=== PATIENT | female | born 1945 | race Caucasian/White ===

== ENCOUNTER 2016-10-21 18:56 | Observation (INO) | payer OTHER ==
[~2016-10-21] VITALS: Ht 165.1 cm; Wt 99.5 kg
[~2016-10-21 18:56] MED LIST: ABILIFY10 MG PO; AMITIZA24 MICROGR PO; BUSPAR15 MG PO; BYSTOLIC5 MG PO; CARDIZEM60 MG PO; CIPROFLOXACIN500 M1 PO; CLARITHROMYCIN500 MG PO; COZAAR100 MG PO; CYANOCOBALAM1000 MCG PO; CYMBALTA60 MG PO; DESYREL100 MG PO; FLONASE16 G1 BOTH NARES; FUROSEMIDE40 MG PO; GABAPENTIN600 MG PO; HYDROCHLOROTHIA25 MG PO; HYDROCODON-ACE1 EAC7 PO; HYZAAR 100-21 TABLET PO; LODINE500 MG PO; LOSARTAN-HCTZ1 EAC1 PO; LYRICA75 MG PO; MECLIZINE HCL25 MG PO; MEGARED OMEGA-1 EAC1 PO; NORCO 7.5/321 TABLET PO; OMEGA-3 KRILL1 EACH PO; OXYCODONE HCL10 MG PO; PANTOPRAZOLE SO40 MG PO; PERCOCET 10/1 TABLET PO; PRILOSEC20 MG PO; TRADJENTA5 MG PO; VITAMIN B122500 MCG PO; VITAMIN D31000 UNI2 PO; VITAMIN D31000 UNIT PO; XARELTO20 MG PO; ZETIA10 MG PO; ZOCOR40 MG PO
[2016-10-21 19:25] LABS: HEMATOCRIT 39.7 % (36.0-46.0); MCH 25.9 PG (29.0-34.0); MCHC 31.7 G/DL (30.0-36.0); MCV 81.5 FL (83-99); MEAN PLAT.VOLUME 9.4 uM^3 (9.5-12.4); PLATELET COUNT 383 K/uL (156-360); RBC DIS.WIDTH-CV 15.4 % (11.8-14.6); RBC DIS.WIDTH-SD 45.4 % (39-53); RED BLOOD COUNT 4.87 M/uL (3.80-5.20); WHITE BLOOD COUNT 13.3 K/uL (4.1-10.2)
[2016-10-21 19:37] LABS: CHLORIDE 100 mEq/L (99-109); POTASSIUM 3.8 mEq/L (3.7-5.4); SODIUM 138 mEq/L (136-147)
[2016-10-21 19:38] LABS: GLUCOSE 109 mg/dL (70-99)
[2016-10-21 19:40] LABS: ANION GAP 11 MEQ/L (2-14)
[2016-10-21 19:42] LABS: GFR ESTIMATE (CALCULATED) 36 mL/min/
[2016-10-21 19:43] LABS: UREA NITROGEN (BUN) 22 mg/dL (9-23)
[2016-10-21 19:46] LABS: TROP-I INTERPRETATION NEGATIVE; TROPONIN-I < 0.01 ng/mL (0.0-0.30)
[2016-10-21 19:58] LABS: D-DIMER ELISA 0.26 mg/L FEU (< 0.57)
[2016-10-21 22:49] VITALS: BP 132/71
[2016-10-22 03:04] LABS: TROP-I INTERPRETATION NEGATIVE; TROPONIN-I < 0.01 ng/mL (0.0-0.30)
[2016-10-22 03:48] VITALS: BP 92/50
[2016-10-22 08:30] VITALS: BP 110/63
[2016-10-22] MEDS ORDERED: OXYCODONE-APAP1 EACH PO (10:44)
[2016-10-22] MEDS ORDERED: TRAZODONE HCL100 MG PO (10:46)
[2016-10-22] MEDS ORDERED: KLONOPIN0.5 M1 PO (10:47)
[2016-10-22 11:40] VITALS: BP 121/67
[2016-10-22 12:52] LABS: TROP-I INTERPRETATION NEGATIVE; TROPONIN-I < 0.01 ng/mL (0.0-0.30)
[2016-10-22 16:32] VITALS: BP 118/67
[2016-10-22 19:00] VITALS: BP 119/63
[2016-10-22] MEDS ORDERED: BACTRIM,SEPT1 TABLET PO (19:27)
[2016-10-22] MEDS ORDERED: ASPIRIN EC325 MG PO (19:27)
[2016-10-22] MEDS ORDERED: OXYCODONE HCL5 MG PO (19:27)
[2016-10-22] MEDS ORDERED: PREDNISONE10 MG PO (19:27)
[2016-10-22] MEDS ORDERED: TUSSIN DM COUG237 ML PO (19:27)
== END 2016-10-22 20:44 | disposition home or self-care (01) ==
LOC: EME 18:56 → 5WEST 21:00 → EDOF 21:00 → 5WEST 22:39
PROVIDERS: Emergency Medicine; Internal Medicine
DX: R55 Syncope and collapse (principal); R09.1 Pleurisy; E86.0 Dehydration; J20.9 Acute bronchitis, unspecified; M94.0 Chondrocostal junction syndrome [Tietze]; I48.0 Paroxysmal atrial fibrillation; I10 Essential (primary) hypertension; Z79.01 Long term (current) use of anticoagulants; M19.90 Unspecified osteoarthritis, unspecified site; K21.9 Gastro-esophageal reflux disease without esophagitis; E66.9 Obesity, unspecified; Z68.36 Body mass index [BMI] 36.0-36.9, adult
CPT/HCPCS: 71020; 80048; 82948; 84484; 85027; 85379; 93005; 94799; 99281; 99285; G0378; J1815; J7040; J7042

== ENCOUNTER 2016-12-01 15:50 | Emergency (ER) | payer OTHER ==
[~2016-12-01] VITALS: Ht 165.1 cm; Wt 100.0 kg
[~2016-12-01 15:50] MED LIST changes: +ASPIRIN EC325 MG PO; +BACTRIM,SEPT1 TABLET PO; +KLONOPIN0.5 M1 PO; +OXYCODONE HCL5 MG PO; +OXYCODONE-APAP1 EACH PO; +PREDNISONE10 MG PO; +TRAZODONE HCL100 MG PO; +TUSSIN DM COUG237 ML PO
[2016-12-01 18:46] VITALS: BP 118/81
== END 2016-12-01 18:47 | disposition home or self-care (01) ==
LOC: EME 15:50
PROC: 2W3RX1Z Immobilization of Left Lower Leg using Splint (ICD-10-PCS; principal; 2016-12-01)
DX: S92.352A Displaced fracture of fifth metatarsal bone, left foot, initial encounter for closed fracture (principal); S86.912A Strain of unspecified muscle(s) and tendon(s) at lower leg level, left leg, initial encounter; W18.09XA Striking against other object with subsequent fall, initial encounter; Y92.000 Kitchen of unspecified non-institutional (private) residence as the place of occurrence of the external cause; I10 Essential (primary) hypertension; E11.9 Type 2 diabetes mellitus without complications; Z79.84 Long term (current) use of oral hypoglycemic drugs; Z79.01 Long term (current) use of anticoagulants
CPT/HCPCS: 73564; 73630; 99281; 99284